=== PATIENT | female | born 2000 | race Caucasian/White ===

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

== ENCOUNTER 2019-04-14 07:00 | Emergency (ER) | payer MEDICAID ==
[~2019-04-14] VITALS: Ht 157.5 cm; Wt 72.5 kg
[2019-04-14 07:04] VITALS: BP 109/48
[2019-04-14] MEDS ORDERED: ONDANSETRON ODT 4 MG ONE (07:30)
[2019-04-14] MEDS ORDERED: ONDANSETRON ODT 4 MG PO ONE (07:30)
[2019-04-14 08:05] LABS: CULTURE INDICATED? YES; HCG UR SG 1.026 (1.003-1.030); MICROSCOPIC AUTO
--- NOTE | 2019-04-14 08:41 | NUR ---
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 Patient ambulatory with steady gait.
== END 2019-04-14 08:42 | disposition home or self-care (01) ==
LOC: ED 07:36
DX: R10.84 Generalized abdominal pain (principal); R11.2 Nausea with vomiting, unspecified
CPT/HCPCS: 81001; 81025; 87086; 99283; Q0162

== ENCOUNTER 2020-09-20 21:47 | Emergency (ER) | payer MEDICAID ==
[~2020-09-20] VITALS: Ht 157.5 cm; Wt 67.7 kg
[2020-09-20 22:01] VITALS: BP 116/74
[2020-09-20] MEDS ORDERED: LIDOCAINE-MPF 1%, 5ML INFIL ONE (22:30)
[2020-09-20] MEDS ORDERED: LIDOCAINE-MPF 1%, 5ML ONE (23:53)
[2020-09-21] MEDS ORDERED: NEOSPORIN OINT. PKT 1 PACKET ONE (00:14)
== END 2020-09-21 00:22 | disposition home or self-care (01) ==
LOC: ED 22:00
DX: L03.011 Cellulitis of right finger (principal)
CPT/HCPCS: 10060